=== PATIENT | female | born 1965 | race Caucasian/White ===

== ENCOUNTER 2018-04-19 13:07 | Emergency (ER) | payer OTHER ==
[~2018-04-19] VITALS: Ht 157.5 cm; Wt 77.3 kg
[~2018-04-19 13:07] MED LIST: ASPI-1152 PO; CALC1TAB91 PO; CHOL20004 PO; FENO145T35 PO; IBUP-1953 PO; LISI1TAB11 PO; MECL12.582 PO; METF500T6 PO; METO25TA6 PO; OMEP20CA10 PO; PARO10TA4 PO; ZOLP10TA6 PO
--- NOTE | 2018-04-19 13:30 | NUR ---
PT AMBULATORY TO ER BED 16. C/O DIFFUSE ABDOMINAL PAIN FOR THE PAST YEAR NOW BUT STATES WORST FOR THE PAST 3 DAYS. NO N/V/D. VSS. AWAITING MD CADENA.
--- NOTE | 2018-04-19 13:51 | NUR ---
SERGE HUANG AT BEDSIDE FOR EVAL.
--- NOTE | 2018-04-19 14:00 | NUR ---
[employer]ALITY CONSULTANT AT BEDSIDE FOR BLOOD DRAW.
[2018-04-19 14:07] LABS: BASOPHILS % (AUTO) 0.3 % (0.0-2.0); EOSINOPHILS % (AUTO) 1.6 % (0.0-6.0); HEMATOCRIT 42 % (33-45); HEMOGLOBIN 13.8 g/dL (11.5-14.8); LYMPHOCYTES # (AUTO) 1.9 /CMM (0.8-4.8); LYMPHOCYTES % (AUTO) 26.3 % (20.0-44.0); MEAN CORPUSCULAR HEMOGLOBIN 27 PG (26.0-33.0); MEAN CORPUSCULAR HGB CONC 33 g/dl (31.0-36.0); MEAN CORPUSCULAR VOLUME 82 fL (82-100); MONOCYTES # (AUTO) 0.6 /CMM (0.1-1.30); MONOCYTES % (AUTO) 7.7 % (2.0-12.0); NEUTROPHILS # (AUTO) 4.7 /CMM (1.8-8.9); NEUTROPHILS % (AUTO) 64.1 % (43.0-81.0); PLATELET COUNT (AUTO) 229 /CMM (150-450); RDW COEFFICIENT OF VARIATION 13.3 (11.5-15.0); RED BLOOD CELL COUNT(AUTO) 5.07 MIL/uL (4.0-5.2); WHITE BLOOD COUNT (AUTO) 7.3 K/uL (4.3-11.0)
[2018-04-19 14:18] LABS: CALCIUM, SERUM 9.1 mg/dL (8.5-10.1); CARBON DIOXIDE 26 mmol/L (21-32); CHLORIDE 107 mmol/L (98-107); CREATININE 0.8 mg/dL (0.6-1.3); GLUCOSE 151 mg/dL (74-106); POTASSIUM 4.1 mmol/L (3.5-5.1); SODIUM SERUM 141 mmol/L (136-145); UREA NITROGEN, BLOOD 13 mg/dL (7-18)
[2018-04-19 14:24] LABS: ALANINE AMINOTRANSFERASE 34 U/L (12-78); ALBUMIN 3.9 g/dL (3.4-5.0); ALKALINE PHOSPHATASE 58 U/L (46-116); ASPARTATE AMINOTRANSFERASE 13 U/L (15-37); BILIRUBIN,DIRECT 0.1 mg/dL (0.0-0.2); BILIRUBIN,TOTAL 0.5 mg/dL (0.2-1.0); LIPASE 421 U/L (73-393); TOTAL PROTEIN, SERUM 7.4 g/dL (6.4-8.2)
[2018-04-19 14:26] LABS: TROPONIN I < 0.017 ng/mL (0.00-0.056)
[2018-04-19 14:31] LABS: INR 0.95 (0.85-1.15)
[2018-04-19 15:30] LABS: APPEARANCE,URINE Clear (CLEAR); BILIRUBIN,URINE Negative (NEGATIVE); BLOOD, URINE Negative Ery/uL (NEGATIVE); COLOR,URINE Yellow (YELLOW); KETONES,URINE Negative (NEGATIVE); LEUKOCYTE ESTERASE ,URINE Negative (NEGATIVE); NITRITE, URINE Negative (NEGATIVE); PH,URINE 5.5 (5.0-8.0); PROTEIN,URINE Negative (NEGATIVE); UGLUCOSE Negative (NEGATIVE); UROBILINOGEN,URINE 0.2 EU/dL (0.2)
--- NOTE | 2018-04-19 15:34 | NUR ---
Patient discharged to home in stable condition. Written and verbal after care instructions given. Patient verbalizes understanding of instruction.
[2018-04-19 15:35] VITALS: BP 132/80
== END 2018-04-19 15:36 | disposition home or self-care (01) ==
LOC: ER 13:11
DX: R10.11 Right upper quadrant pain (principal); E78.5 Hyperlipidemia, unspecified; K21.9 Gastro-esophageal reflux disease without esophagitis; F32.9 Major depressive disorder, single episode, unspecified; E11.9 Type 2 diabetes mellitus without complications; I10 Essential (primary) hypertension; Z79.82 Long term (current) use of aspirin
CPT/HCPCS: 36415; 71045; 80048; 80076; 81001; 83690; 84484; 85025; 85730; 93005; 99285; A4606; Z7610; 81000-TC

== ENCOUNTER 2021-03-31 10:15 | Emergency (ER) | payer OTHER ==
[~2021-03-31] VITALS: Ht 165.1 cm; Wt 64.9 kg
[~2021-03-31 10:15] MED LIST changes: -ASPI-1152 PO; +ASPI-1420 PO; +FENO145T21 PO; -FENO145T35 PO; -LISI1TAB11 PO; +LISI1TAB55 PO; +MECL-182 PO; -MECL12.582 PO; +METF-440 PO; -METF500T6 PO; -OMEP20CA10 PO; +OMEP20CA15 PO
--- NOTE | 2021-03-31 10:19 | NUR ---
TO ER BED 3, C/O DIFFUSE ABDOMINAL PAIN/DISTENSION X 1 WEEK, CHANGED TO GOWN, ATTACHED TO MONITOR, MD AT BEDSIDE, SALINE LOCK ESTABLISHED, BLOOD DRAWN AND SENT TO LAB
[2021-03-31] MEDS ORDERED: MORPHINE SULFATE INJ 2 MG/ML DISP.SYRIN IV ONE (10:30)
[2021-03-31] MEDS ORDERED: IV NS 0.9% 1,000 ML BAG IV ONE (10:30)
[2021-03-31] MEDS ORDERED: ONDANSETRON HCL/PF 4 MG/2 ML VIAL IVP ONE (10:30)
[2021-03-31] MEDS ORDERED: ONDANSETRON HCL/PF 4 MG/2 ML VIAL ONE (10:39)
[2021-03-31] MEDS ORDERED: MORPHINE SULFATE INJ 4 MG/ML DISP.SYRIN ONE (10:39)
[2021-03-31 10:44] LABS: BASOPHILS # (AUTO) 0.1 K/uL (0.0-0.2); BASOPHILS % (AUTO) 1.1 % (0.0-2.0); EOSINOPHILS % (AUTO) 1.4 % (0.0-6.0); HEMATOCRIT 35 % (33-45); HEMOGLOBIN 12.1 g/dL (11.5-14.8); LYMPHOCYTES # (AUTO) 1.2 K/uL (0.8-4.8); LYMPHOCYTES % (AUTO) 13.7 % (20.0-44.0); MEAN CORPUSCULAR HGB CONC 34 g/dl (31.0-36.0); MEAN CORPUSCULAR VOLUME 84 fL (82-100); MONOCYTES # (AUTO) 0.6 K/uL (0.1-1.30); MONOCYTES % (AUTO) 6.7 % (2.0-12.0); NEUTROPHILS # (AUTO) 6.7 K/uL (1.8-8.9); NEUTROPHILS % (AUTO) 77.1 % (43.0-81.0); PLATELET COUNT (AUTO) 583 K/uL (150-450); RED BLOOD CELL COUNT(AUTO) 4.18 MIL/uL (4.0-5.2); WHITE BLOOD COUNT (AUTO) 8.7 K/uL (4.3-11.0)
--- NOTE | 2021-03-31 10:45 | NUR ---
US AT BEDSIDE
[2021-03-31 10:53] LABS: CALCIUM, SERUM 9.8 mg/dL (8.5-10.1); CARBON DIOXIDE 25 mmol/L (21-32); CHLORIDE 104 mmol/L (98-107); CREATININE 0.8 mg/dL (0.6-1.3); GLUCOSE 175 mg/dL (74-106); POTASSIUM 4.4 mmol/L (3.5-5.1); SODIUM SERUM 140 mmol/L (136-145); UREA NITROGEN, BLOOD 13 mg/dL (7-18)
[2021-03-31 11:10] LABS: ALANINE AMINOTRANSFERASE 91 U/L (12-78); ALBUMIN 3.5 g/dL (3.4-5.0); ALKALINE PHOSPHATASE 72 U/L (46-116); ASPARTATE AMINOTRANSFERASE 54 U/L (15-37); BILIRUBIN,DIRECT 0.2 mg/dL (0.0-0.2); BILIRUBIN,TOTAL 0.5 mg/dL (0.2-1.0); LIPASE 578 U/L (73-393); TOTAL PROTEIN, SERUM 8.1 g/dL (6.4-8.2)
--- NOTE | 2021-03-31 11:13 | NUR ---
URINE COLLECTED AND SENT TO LAB
--- NOTE | 2021-03-31 11:13 | NUR ---
TAKEN TO CT
[2021-03-31] MEDS ORDERED: IOHEXOL-300 100 ML VIAL IV ONE (11:14)
[2021-03-31] MEDS ORDERED: IV NS 0.9% 250 ML IV ONE (11:15)
[2021-03-31 11:20] LABS: BILIRUBIN,URINE Negative (NEGATIVE); COLOR,URINE YELLOW (YELLOW); LEUKOCYTE ESTERASE ,URINE Negative (NEGATIVE); NITRITE, URINE Negative (NEGATIVE); PROTEIN,URINE Negative (NEGATIVE); UGLUCOSE Negative (NEGATIVE); UROBILINOGEN,URINE 0.2 EU/dL (0.2)
--- NOTE | 2021-03-31 11:46 | NUR ---
BACK FROM CT
--- NOTE | 2021-03-31 12:40 | NUR ---
CALLED FOR COVID ANTIGEN SWAB
[2021-03-31] MEDS ORDERED: ONDA4TAB5 PO (12:42)
--- NOTE | 2021-03-31 12:59 | NUR ---
COVID ANTIGEN SWAB DONE AND SENT TO LAB
[2021-03-31 14:00] VITALS: BP 126/80
--- NOTE | 2021-03-31 14:00 | NUR ---
IV removed. Catheter intact and site benign. Pressure and 4x4 applied to site. No bleeding noted.Patient discharged to home in stable condition. Written and verbal after care instructions given. Patient verbalizes understanding of instruction.
== END 2021-03-31 14:01 | disposition home or self-care (01) ==
LOC: ER 10:15
DX: R10.11 Right upper quadrant pain (principal); R11.2 Nausea with vomiting, unspecified; K76.0 Fatty (change of) liver, not elsewhere classified; R91.8 Other nonspecific abnormal finding of lung field; Z20.822 Contact with and (suspected) exposure to COVID-19; K57.90 Diverticulosis of intestine, part unspecified, without perforation or abscess without bleeding; K40.20 Bilateral inguinal hernia, without obstruction or gangrene, not specified as recurrent; K44.9 Diaphragmatic hernia without obstruction or gangrene; Z79.82 Long term (current) use of aspirin; K21.9 Gastro-esophageal reflux disease without esophagitis; E11.9 Type 2 diabetes mellitus without complications; Z79.84 Long term (current) use of oral hypoglycemic drugs; I10 Essential (primary) hypertension; F32.9 Major depressive disorder, single episode, unspecified; R94.31 Abnormal electrocardiogram [ECG] [EKG]
CPT/HCPCS: 36415; 71045; 74177; 76705; 80048; 80076; 81003; 83690; 84484; 85025; 87426; 93005; 96361; 96374; 96375; 99285; C9803; J2270; J2405; J7030; J7050; Q9967